=== PATIENT | male | born 1960 | race Caucasian/White ===

== ENCOUNTER → 2016-06-25 | Outpatient (CLI) | payer OTHER ==
--- NOTE | 2016-06-25 08:46 | RAD ---
Indication right upper quadrant pain. Grayscale imaging targeted to the right upper quadrant was performed. There is some increased attenuation of the ultrasound beam compatible with fatty infiltration. A focal mass lesion in the visualized liver is not seen. The gallbladder appears normal. The common bile duct diameter of approximately 3 mm is also normal. The pancreas is poorly visualized and largely obscured by gas. The visualized inferior vena cava appears normal. The right kidney appears unremarkable. IMPRESSION: Fatty infiltration of the liver. Normal gallbladder. Pancreas largely obscured
== END | disposition home or self-care (01) ==
LOC: US 06:19
PROVIDERS: ATTEND Family Medicine
DX: R10.11 Right upper quadrant pain (principal); K76.0 Fatty (change of) liver, not elsewhere classified
CPT/HCPCS: 76705